=== PATIENT | female | born 1960 | race Caucasian/White ===

== ENCOUNTER 2019-03-29 06:01 | Day surgery (SDC) | payer OTHER, SELFPAY ==
[2019-03-22 10:36] VITALS: BMI 41.8
[2019-03-29] VITALS (19 sets, daily range): BP systolic 113–156; BP diastolic 60–88; PULSE 72–92; RESP 8–18; TEMP 36.3–36.9; O2SAT 92–99; BMI 41.8
--- NOTE | 2019-03-29 | DI.RAD.S_ITS ---
PROCEDURE: XR ANKLE LT MIN 3V INDICATIONS: LEFT ANKLE BONE GRAFTING TECHNIQUE: AP and lateral intraoperative fluoroscopic views of the ankle were acquired. COMPARISON: None. FINDINGS: Intraoperative fluoroscopy documents a distal fibular diaphysis osteotomy/fracture with subsequent internal fixation/fusion of the distal fibula, distal tibia, and distal talus by multiple hardware screws. There is soft tissue edema and irregularity overlying the left ankle, consistent with postsurgical change. Left ankle and hindfoot degenerative changes are again demonstrated. Calcaneal enthesopathy is also noted. IMPRESSION: Intraoperative fluoroscopy documenting a left distal fibular diaphyseal osteotomy/fracture with subsequent internal fixation/fusion of the left distal fibula, distal tibia, and distal talus. Dictated by: Maxi Patel M.D. on 03/29/2019 at 17:41 Approved by: Maxi Patel M.D. on 03/29/2019 at 17:47
--- NOTE | 2019-03-29 06:57 | PM.PREOP ---
Pre-operative Note Interval Note History & Physical reviewed/Exam performed by Physician: Yes Changes to H&P: No
[2019-03-29] MEDS: LACTATED RINGERS 1,000 ML 42 ML IV ×2 (07:00→09:21)
--- NOTE | 2019-03-29 07:37 | P.OP_ITS ---
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 Open ankle fusion, left CPT code 05539 2. Fibular excision distal, left CPT code 67130 3. Bone graft major, proximal tibia, left CPT code 72372 4. Tendo Achilles lengthening left cpt 37163 5. Exostectomy spur talonavicular joint--navicular spur 40380 Modifier 22 for morbid obesity. the patient's elevated BMI 41 required extra help with positioning and assistance for holding for and screw placement., culminating in taking approximately twice as long as the standard ankle fusion. Same procedure as scheduled: Yes Indications: Patient is a 59-year-old female with a history of posttraumatic left ankle arthritis morbid obesity that has failed conservative treatment. She has been indicated for open ankle fusion to address her deformity and posttraumatic arthritis. She has been indicated for titanium implant due to nickel allergy. The patient has maintained cessation from smoking. The risks and benefits of the procedure have been discussed with the patient even opportunity to ask questions. The risks of surgery include but are not limited to infection, malunion, nonunion, persistence of pain, damage to nerves and blood vessels, posttraumatic arthritis, DVT, PE, cardiopulmonary complications and . The patient expressed a thorough understanding of the risks and benefits of surgery and has elected to proceed. Consent was signed in the office. Patient understands the importance of elevation above the heart level for the at least 2 weeks postoperatively to help with pain and swelling. She understands that she'll be nonweightbearing for approximately 3 months. Surgeon: Tamie Schmid Assistant Speech Language Pathologist: Leroy Morris Anesthesia Type: General, Peripheral nerve block and Local Operative Notes Findings: Posttraumatic ankle arthritis valgus, equinus contracture Closure Type: primary Specimen(s): none sent Prosthetic devices, grafts, tissues, transplants, or devices: Arthrex 6.7 titanium partially threaded headed cannulated screws x3. Arthrex solid 4.5 cortical screws x2 Estimated Blood Loss (mL): 100 Blood products transfused: none Tourniquet time (min): 120 Procedure in detail: Patient was seen in the preoperative area and the site of surgery was marked and informed consent confirmed. The patient was brought back to the operating room. The patient received a preoperative block by the anesthesia team for postoperative pain control. The patient was positioned supine on the operative table. General anesthesia was administered. All bony prominences were well padded. An SCD was placed on the contralateral lower extremity. A well-padded thigh tourniquet was placed. An ipsilateral thigh bump was placed. The patient was prepped and draped in the standard sterile fashion. Formal time-out procedure was performed confirming the patient's side and site of surgery and appropriate weight based preoperative antibiotic dosing. Informed consent was in the room. Implants were in the room and accounted for. All were in agreement Attention was turned to the patient's left lower extremity. Surgical incision sites were marked out on the leg and the tourniquet was raised on the thigh 250 mm of mercury and stayed there for 120 minutes and then was released and not real elevated. The patient is a previous lateral fibular incision was reopened. This was taken through the skin subcutaneous tissue down to the level of the fibula. Subperiosteal dissection was taken anteriorly and posteriorly releasing the fibula. The fibula was osteotomized approximately 8 cm proximal this was done with the TP S saw. The distal fibula was then excised and put aside in a moist cloth. This provided access to the tibiotalar joint. The had tremendous tractor was used to provide access to the joint and then the joint was debrided of any remaining cartilage with a series of curettes and osteotomes. Of note the bone was severely eburnated. An additional medial arthrotomy incision was made to help debride the medial gutter as well as provide access to the talonavicular joint which also had a large spur that was debrided at the patient's request. At the medial arthrotomy the anterior tibialis tendon was protected within its sheath and retracted laterally. This exposed the tibiotalar joint and distally the talonavicular joint. The rongeur was and osteotomes were used to debride the dorsal navicular spur. And a series of curettes and osteotomes used to help debride the medial gutter. Once this was completed the wound was irrigated. This was irrigated thoroughly and then a 4 0 oval bur was used to prepare the bony surfaces followed by drilling with the [address]. Next attention was turned to harvesting the bone graft. The fibula was divided in the sagittal plane and the medial part morselized for autograft. The lateral part was retained to use as a fibular strut. To obtain additional autograft the proximal tibia bone graft site was utilized. A 2 cm incision just lateral to the tibial tubercle and distal to Gerdy's tubercle was made. The soft tissues were retracted. The anterior compartment fascia was incised and retracted posteri denise. A 6 mm osteotome was used to make a sq bone window. A large curette was used to harvest the bone graft. X-ray was used to confirm this was well away from the joint line. Once this was completed the bone window was replaced and this wound was closed in a layered fashion after irrigation. And local anesthetic was administered. The autograft was placed into a container and set aside on the back table. Now attention was turned back to the ankle for the arthrodesis procedure. The autograft was placed along the talus and tibia filling the cyst surface with autograft. Following this the ankle was positioned into neutral dorsiflexion and rotation line with the 2nd toe and the tibial crest. This was checked on multiplanar fluoroscopy and then pinned in place using a guidewire for the 6 7 a cannulated screws. The 1st wire was placed through the lateral process of the talus up through the medial tibia. This was then measured and overdrilled. Then a a screw from the tibia to the lateral process of the talus was placed at this was a short thread acute 6 7 cannulated screw. This provided excellent fixation. Next attention was turned to a anterior lateral screw from the fibula into the talus again this was placed with a guidewire confirmed on multiplanar fluoroscopy and then over drilled and a short 6 7 cannulated screw placed. A 3rd screw was attempted for a posterior to anterior screw. This was 1st attempted anterior lateral aiming into the talar neck however S screw traffic was encountered after multiple attempts and this was ultimately abandoned and switched to a additional medial screw which did obtain good purchase. This was fixed with a long thread 6 7 cannulated screw and a washer was utilized to help avoid subsidence. Once the screws were confirmed the remaining lateral aspect of the fibula was used as an on leg graft and secured with 245 cortical screws placed in lag fashion. Once this was completed the prominent edge of the fibula distally was burred and smoothed off the wound was irrigated thoroughly and closed in layers with 0 Vicryl 2 O Vicryl 4 0 Monocryl and 3 O nylon. 0.25% Marcaine with epinephrine was used as local anesthetic. A sterile dressing with Xeroform gauze Webril bulky Clemens cotton and a U and posterior splint were placed. Final fluoroscopic imagings were obtained confirming a neutral alignment and no additional joint penetration. Patient was then woken from anesthesia and taken to recovery room in good condition. There no immediate complications from this procedure. All counts were correct. The patient did receive a re-dose of her antibiotics at the 4 hour angel. Complications: none Post-operative Condition: stable Disposition: Acute Care Plan for aftercare: Patient will be admitted to the hospital postoperatively for monitoring and pain control. She brought her CPAP to use on the floor. She will be discharged when her pain is controlled. Start aspirin 325 mg on postop day 1 for DVT prophylaxis. She'll continue this for 42 days. Maintain nonweightbearing left lower extremity. Elevate above the heart level. Follow up as scheduled in 1 week. Patient has prescriptions for pain medication oxycodone and Toradol and anti nausea medications Zofran and stool softener Colace on the chart.
[2019-03-29] MEDS: MIDAZOLAM 2 MG/2 ML VIAL IV (07:42)
[2019-03-29] MEDS: fentaNYL 100 MCG/2 ML INJ 50 MCG IV ×2 (07:42→07:45)
[2019-03-29] MEDS: CEFAZOLIN 2 GM/100 ML FROZ.PIGGY IV ×3 (08:06→19:52)
--- NOTE | 2019-03-29 08:14 | SUR.PREOP ---
Block start time [0752] . Monitoring initiated and maintained throughout procedure. Oxygen and medications given per anesthesiologist instructions. Patient remained stable throughout procedure, no adverse reactions noted. Block end time [0757 ].
--- NOTE | 2019-03-29 08:39 | SUR.OPER ---
Supine on padded OR bed, head on pillow, arms secured on padded arm boards at <90 degrees abduction, legs uncrossed, safety belt at thigh, tape over blanket over lower legs. bump under left hip, blankets placed under left leg
--- NOTE | 2019-03-29 09:13 | PM.PROC.1 ---
Procedures Date/Time Date of procedure: 03/29/19 Time of procedure: 07:45 Nerve Block Local anesthetic used: other (0.5% Ropivacaine 16ml, 2% Lido with epi 4ml) Location of anesthetic used: Left popliteal Amount of anesthesia used (mL): 20 Nerve blocks: other (Left Sciatic nerve block, popliteal approach) Procedure successful: Yes (Unknown outcome at time of this documentation.) Patient tolerated procedure: well and no complications Complications: none Additional comments: Procedure explained, questions answered and consent signed. Routine monitors and NC O2 in place with patient in prone position. Nerve stimulator and ultrasound utilized. Site and side reaffirmed. IV sedation titrated (total of 2mg Versed and 100mcg fentanyl. Landmarks identified, measured and marked. Chloroprep applied and sterile drapes used. Ultrasound visualization verified. 1% Lidocaine skin wheel with 25g. Nerve block needle (sheathed, 22g, 100mm) advanced. No twitch elicited (after drapes removed realized grounding pad for twitch monitor had detached). Negative 2ml test dose. Total volume of 20 ml given. Patient tolerated procedure well and patient taken to the OR. No evidence of block onset at time of induction for surgery. Of note, no ultrasound picture obtained due to malfunction of ultrasound printer.
[2019-03-29] MEDS: ACETAMINOPHEN IV 1,000 MG/100 ML VIAL 400 MG IV (13:07)
[2019-03-29] MEDS: BUPIVACAINE 0.25% W/ EPI (PF) 10 ML VIAL 30 ML INJ (13:10)
[2019-03-29] MEDS: HYDROMORPHONE 2 MG INJ IV ×4 (14:01→14:41)
[2019-03-29] MEDS: hydrOXYzine 50 MG/ML INJ 25 MG IM (14:03)
[2019-03-29] MEDS: OXYCODONE IR 5 MG TABLET PO (15:26)
--- NOTE | 2019-03-29 15:54 | SUR.PHASEI ---
Patient transferred to the floor on 1l o2. Report to Shannan. VS stable. IV saline locked. Scant amt of sero-sanguineous drainage to upper left leg dressing. KATHLEEN CDI. Left toes pink. Belongings bag and Cpap with patient.
[2019-03-29] MEDS: LACTATED RINGERS 1,000 ML 125 ML IV (16:18)
[2019-03-29] MEDS: HYDROMORPHONE 0.5 MG INJ IV ×2 (16:41→19:52)
[2019-03-29] MEDS: ACETAMINOPHEN 325 MG TABLET 975 MG PO ×2 (16:41→21:37)
--- NOTE | 2019-03-29 16:56 | PM.PNPO.1 ---
Subjective Subjective Date Patient Seen: 03/29/19 Time Patient Seen: 16:57 Interval history: Postop day 0 left ankle fusion, fibular excision, navicular ostectomy, tendo Achilles lengthening Doing well. Pain getting better controlled. On the floor. Block did not seem to work very well. Has some mild numbness around the toes otherwise did not get much relief from the block but is improving with the pain medications. Resting comfortably in bed right now. Using the CPAP when she sleeps. Exam Vital Signs (past 8 hours): - 03/29/19 13:49 03/29/19 13:54 03/29/19 13:59 Temperature 97.3 F L Pulse Rate 91 H 83 85 Respiratory Rate 15 9 L 10 L Blood Pressure 113/70 122/77 131/61 Pulse Oximetry 94 95 95 03/29/19 14:04 03/29/19 14:14 03/29/19 14:24 Temperature Pulse Rate 83 86 83 Respiratory Rate 9 L 14 8 L Blood Pressure 117/73 120/69 115/60 Pulse Oximetry 95 95 92 03/29/19 14:34 03/29/19 14:44 03/29/19 14:54 Temperature 97.8 F Pulse Rate 84 84 87 Respiratory Rate 18 12 12 Blood Pressure 127/70 133/67 123/68 Pulse Oximetry 99 98 96 03/29/19 15:04 03/29/19 15:14 03/29/19 15:29 Temperature Pulse Rate 85 79 92 H Respiratory Rate 12 12 12 Blood Pressure 125/74 122/70 124/77 Pulse Oximetry 97 93 95 03/29/19 15:35 03/29/19 16:05 03/29/19 16:36 Temperature 98.0 F 97.4 F L 98.5 F Pulse Rate 82 81 91 H Respiratory Rate 16 16 16 Blood Pressure 127/68 137/67 156/83 H Pulse Oximetry 96 93 93 Oxygen Delivery Method Room Air Oxygen Flow Rate 1 Narrative Exam Narrative: Resting in bed. Alert and oriented. Breathing unlabored room air. Has CPAP available for when she sleeps for her obstructive sleep apnea Regular rate and rhythm Left lower extremity in splint clean dry and intact. Can feel some sensation in her toes that is tingly. Partial nerve block Assessment & Plan Post-op Postoperative Procedures: Procedures Operation Date: 03/29/19 07:45 Actual Procedures Side Surgeon p Ankle Fusion, poss. autologous bone graft Left Tamie Schmid MD postop day 0 left ankle fusion. Patient had fibular excision, proximal tibia on the longus bone graft, tendo Achilles lengthening, navicular exostectomy Nonweightbearing left lower extremity. Admission for pain control. Patient will work with Physical therapy tomorrow. If pain controlled possible discharge home other ways anticipate may be discharged home on Monday when pain is controlled. Patient will have narcotic available as well as scheduled Toradol. On the patient's chart there are some discharge prescriptions including oxycodone and 3 days of oral Toradol, Zofran, Colace. Patient will start aspirin 325 mg daily for DVT prophylaxis on postop day 1. She will also use SCDs while in bed in the hospital. The patient will follow up in [address] Schmid. She has been counseled the importance of elevation above the heart level as much as possible for the 1st 2-3 weeks after surgery Quality VTE Deep Vein Thrombosis/Pulmonary Embolism Present on Admission: No
[2019-03-29] MEDS: OXYCODONE IR 10 MG TABLET PO ×2 (18:57→21:45)
[2019-03-29] MEDS: DOCUSATE 100 MG CAPSULE PO (21:36)
[2019-03-29] MEDS: KETOROLAC 30 MG/ML VIAL IV (21:37)
--- NOTE | 2019-03-29 23:47 | PC.NURSE ---
Admit/Evening Shift Note-Patient arrived to room via bed from PACU. Patient alert and oriented and able to make needs known to staff. Patient oriented to bed and bed controls, room, lights, phone, menu, and call slaughter/tv remote. PRN Pain medications given as ordered per patient request. Patient tolerated without issue. LLE in cast ans wrap with graeme wrap and elevated up on pillows. Ice pack provided. serosanguinous drainage noted to back of cast, simulation technician surgeon notified. No new ordered given. Will monitor. Safety measures in place. patient agrees to call for assistance. bed alarm activated. call slaughter and phone within reach. Will continue to monitor.
[2019-03-30] MEDS: OXYCODONE IR 10 MG TABLET PO ×5 (00:45→12:17)
[2019-03-30] MEDS: LACTATED RINGERS 1,000 ML 125 ML IV (00:46)
[2019-03-30] MEDS: HYDROMORPHONE 0.5 MG INJ IV (02:12)
[2019-03-30 03:43] VITALS: BP 123/78; PULSE 71; RESP 16; TEMP 36.6; O2SAT 96
[2019-03-30] MEDS: CEFAZOLIN 2 GM/100 ML FROZ.PIGGY IV (04:25)
[2019-03-30] MEDS: KETOROLAC 30 MG/ML VIAL IV ×2 (05:31→12:59)
[2019-03-30] MEDS: VARENICLINE 1 MG 1 EACH PO (08:38)
[2019-03-30] MEDS: DOCUSATE 100 MG CAPSULE PO (08:38)
[2019-03-30] MEDS: AMLODIPINE 2.5 MG TABLET PO (08:38)
[2019-03-30] MEDS: LOSARTAN 50 MG TABLET 100 MG PO (08:39)
[2019-03-30] MEDS: hydroCHLOROthiazide 25 MG TABLET PO (08:39)
[2019-03-30] MEDS: ASPIRIN EC 325 MG TABLET PO (08:39)
[2019-03-30] MEDS: ACETAMINOPHEN 325 MG TABLET 975 MG PO ×2 (08:39→14:01)
[2019-03-30] MEDS: SODIUM CHLORIDE 0.9% FLUSH 10 ML IV (08:40)
[2019-03-30 09:15] VITALS: BP 132/68; PULSE 85; RESP 16; TEMP 36.6; O2SAT 96
--- NOTE | 2019-03-30 09:22 | P.DS_ITS ---
History of Present Illness History of Present Illness Date Patient Seen: 03/30/19 Time Patient Seen: 09:22 Chief complaint: *OPB* [id number] Narrative: Postop day 1 left ankle fusion Doing well. Pain better controlled today. Block is worn off. Has not worked with physical therapy. Denies fevers chills shortness of breath. Would like to try to go home today if she is successful with therapy. Discharge Providers Provider Discharge Date: 03/30/19 Primary care physician: BASSEM Gongora Consults: 03/29/19 06:00 Consult to Anesthesiology Routine Comment: Consulting Provider: Anesthesiologist Reason for consultation: Post operative pain managment Has provider been notified: No 03/29/19 06:58 Consult to Respiratory Therapy Evaluate & Treat Comment: Physician Instructions: Evaluate and treat 03/29/19 16:03 Consult to Physical Therapy Evaluate & Treat Comment: KEILY LAL Physician Instructions: Evaluate and Treat Consult to Respiratory Therapy Evaluate & Treat Comment: Physician Instructions: Evaluate and treat 03/29/19 16:06 Consult to Respiratory Therapy Evaluate & Treat Comment: ALTON w/ CPAP, mild asthma, obesity, past smoker Physician Instructions: Evaluate and treat Discharge provider: Tamie Schmid MD Summary Hospital Course Discharge Diagnosis: Left ankle posttraumatic arthritis Morbid obesity BMI 41.8 Obstructive sleep apnea Hospital Course: Patient was admitted to the hospital postoperatively after her ankle fusion. Patient was admitted for monitoring and pain control. Patient has history of obstructive sleep apnea and requires CPAP. Patient's peripheral nerve block was only partially affected. Patient received IV and oral pain medications. On postoperative day 1 the patient felt that her pain was adequately controlled. She will be working with Physical therapy later today. If she has safe for ambulation and stable to remain nonweightbearing on the lower extremity with pain controlled she may be discharged to home versus requiring another day stay for pain control and mobilization assistance.. Status at Discharge Cognitive/behavioral status at discharge: oriented Functional status at discharge: uses cane/walker Overall status at discharge: patient is not back to baseline Time Spent with Patient Time spent: Less than 30 minutes Exam Vital Signs (past 8 hours): - 03/30/19 03:43 Temperature 97.9 F Pulse Rate 71 Respiratory Rate 16 Blood Pressure 123/78 Pulse Oximetry 96 Oxygen Delivery Method Room Air,CPAP Oxygen Flow Rate 0 Narrative Exam Narrative: General exam is alert oriented obese female lying in bed. Good spirits this morning HEENT exam normocephalic atraumatic Respiratory exam unlabored on room air Vital signs stable CV exam regular rate and rhythm. Lower extremities: Left lower extremity in splint. Splint is some mild amount of drainage on the posterior lateral aspect of the Alex. And small amount of drainage at the proximal bone graft harvest site. Patient wiggles toes. Endorses sensation. Brisk capillary refill. Right lower extremity normal range of motion. Soft and nontender. Normal sensation. SCD on contralateral ext remity Discharge Plan Discharge Plan Patient Disposition: Home Discharge comment: if successful after working with physical therapy today Discharge Med Rec/Prescriptions Prescriptions: New ketorolac 10 mg tablet 10 mg PO QID 3 Days Qty: 12 RF: 0 oxycodone 5 mg tablet 5 - 10 mg PO Q4H PRN (Reason: pain) Qty: 60 RF: 0 aspirin 325 mg tablet,delayed release (DR/EC) 325 mg PO DAILY Qty: 42 RF: 0 docusate sodium [Colace] 100 mg capsule 100 mg PO BID Qty: 30 RF: 1 ondansetron HCl [Zofran] 4 mg tablet 4 mg PO Q8H PRN (Reason: nausea and vomiting) Qty: 7 RF: 1 Continued hydrochlorothiazide 25 mg Tablet 25 mg PO DAILY RF: 0 albuterol sulfate [Ventolin HFA] 90 mcg/actuation Hfa Aerosol Inhaler 1 - 2 puff INHALATION Q4-6H PRN (Reason: Shortness Of Breath) RF: 0 losartan 100 mg Tablet 100 mg PO DAILY RF: 0 fluticasone propionate 50 mcg/actuation [place],Suspension 2 spray INTRANASAL DAILY RF: 0 Chantix 1 mg Tablet 1 mg PO BID RF: 0 amlodipine 2.5 mg Tablet 2.5 mg PO DAILY RF: 0 Follow up/Referrals: Tamie Schmid MD [Physician] - Discharge Orders: Discharge (Order); Ordered 03/30/19 Ordered By: Tamie Schmid Provider Discharge Instructions Diet: Diet as Tolerated Activity: nwb LLE. elevate above heart level as much as possible Other treatments: At-Home Instructions - Dr. Schmid Surgery: ankle fusion Cast/Splint/Dressing Care Instructions 1) Keep cast/dressing clean and dry. 2) May bathe - but cast/dressing must remain dry. 3) Should the cast become wet, you need to come into emergency department or call your physician's clinic immediately for cast removal and replacement. Moisture can cause skin breakdown and lead to infection if left untreated. 4) Do not stick any sharp object down the cast to itch, as this can cause scrapes/cuts/punctures which can lead to infection. 6) Observe for increasing pain in the extremity with the cast, finger/toe-tips turning blue/purple, or numbness and tingling in your toes/fingers. Should any of these symptoms arise, you need to be seen immediately for evaluation of swelling and increasing compartment pressures within your affected extremity. 7) Keep your affected extremity elevated - Toes Above your Nose? - This is plummer in the first two weeks after surgery to minimize swelling. 8) You may ice your extremity, being careful to prevent melting ice from saturating into the splint/cast. Activity No heavy lifting greater than 10 pounds. No [address] while on narcotic pain medication. Do not get your dressing/cast/splint wet! You must remain non-weight bearing on your operative extremity. Use crutches or a walker for ambulation. No driving until you are otherwise instructed by your physician. This will be addressed at your first follow-up appointment. Discharge Pain Medications You will be given a prescription for pain medication. You should start taking this the same day after your surgery. Wean off as tolerated. Do not wait to take the pain medication until the pain is severe, as it will be difficult to catch up once this occurs. The pain medication usually reaches its full effect ~1 hour after ingesting. If you have been sent home on Colace, this medication should be taken until you are off all narcotic (i.e. Vicodin, Percocet, Oxycodone, etc) pain medications, to prevent constipation. You may also obtain this or another stool softener over the counter to prevent or alleviate constipation. Percocet or Vicodin have Tylenol in their ingredient lists. You must be careful not to exceed 3,000mg (3 grams) of Tylenol, from all sources, within a single 24-hr period. This means that you may not take more than 10 pills within a 24- hr period. Do NOT take Regular or Extra Strength Tylenol when taking your Percocet or Vicodin medications. -Recommend vitamin D and calcium to help bone healing: recommend 500 units vitamin D daily and 1200mg calcium daily -Some common side effects of the narcotic pain medications (Percocet, Oxycodone, Vicodin, etc.) include nausea and itching. Benadryl is a great over the counter medication that helps calm your stomach, decreases your anxiety levels, and minimizes the itching. You can easily purchase this at your local pharmacy as an pzhp-joo-shotyyy medication. Please abide by the instructions as printed on the bottle. If your nausea persists, make sure to take small amounts of crackers or other drywall taper helper foods. Follow-Up/Emergency Contacts Please call for an appointment in either [place] or [place], if one has not been scheduled. Follow up 1 week after surgery. [phone] Contact the office if you have any of the following: ? Painful swelling or numbness ? Unrelenting pain ? Fever (over 101?- it is normal to have a low grade fever for the first day or two following surgery) or chills ? Redness around the incisions ? Color changes ? Continuous bleeding or drainage from the incision (a small amount is expected) ? Excessive nausea or vomiting ? Difficulty breathing If you have an emergency that requires immediate attention, proceed to the nearest emergency room. Blood Clot Prophylaxis You will need to complete a total 6-week (42 days) course of Aspirin (325 mg daily) after surgery, to minimize the risk of blood clots following surgery. You may alternatively purchase or use [id number] generic equivalent Aspirin. If you already have ?baby? Aspirin (81mg) at home, you can take 4 ?baby? Aspirin to total 324mg for the equivalent dose. Pain Medications: It is the policy of [facility] that narcotic medications will only be refilled during office hours. Additionally, due to the alarming rate of narcotic pain medication abuse/dependence, it has become necessary for physician practices to closely manage patient use of prescription narcotic pain relievers, such as Vicodin ([place]), Percocet, and Oxycodone products. Narcotic pain management in the postoperative period may not exceed 6 weeks. If narcotic pain management is required beyond 90 days, then a referral to a Chronic Pain Specialist will be made. If a request for a medication prescription has been made, the physician must review your chart prior to authorizing the request. Please be patient with office staff. If you call during patient hours, your call may not be returned until the end of the day. A visit will be required before a narcotic prescription can be issued. Dr. Tamie Schmid [address] [email or web address] Skin/Wound/Dressing Care Report to your healthcare provider any signs of infection, such as:: chills, fever, night sweats, increased pain, unusual drainage and unusual redness Dressing: keep clean, dry and intact Discharge Data Primary Care Provider: Jaja Baker Attending Provider: Tamie Schmid Quality VTE Deep Vein Thrombosis/Pulmonary Embolism Present on Admission: No
--- NOTE | 2019-03-30 09:32 | PT.IIE ---
Current Diagnoses Primary osteoarthritis, left ankle and foot (03/29/19) Post-traumatic osteoarthritis, left ankle and foot (03/29/19) Surgery Performed Operation Date: 03/29/19 07:45 Actual Procedures p Ankle Fusion, poss. autologous bone graft(Left) - Tamie Schmid MD Surgical History (Last Updated 03/22/19 @ 10:41 by Lashon Sharma RN) H/O wrist surgery (Acute ~2018) H/O: hysterectomy (Acute 11/23/15) History of ankle surgery (Acute) Hx of cholecystectomy (Acute ~2001) Medical History (Last Updated 03/22/19 @ 10:41 by Lashon Sharma RN) Chronic pain of left ankle (Acute) Uterine cancer (Acute) Physical Therapy Inpatient Evaluation/Re-Eval M1 PT/OT-IP Prior Functional Status Start: 03/30/19 12:58 Freq: NEEDED Status: Active Protocol: Document 03/30/19 09:32 AB (Rec: 03/30/19 13:25 AB [id number]) Medical Review Prior Functional Status Medical History Reviewed Yes Communication Able to make needs known Mobility and Gait pt stated that she is independent with all mobilities and ambulation without AD Social History Household Members spouse Living Arrangements House Number of Floors (Floors) One Floor Number of Stairs To Enter/Railing? 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 Additional Social History Comment pt stated that she works at [employer] pt also has a knee scooter M2 PT-IP Current Condition Start: 03/30/19 12:58 Freq: NEEDED Status: Active Protocol: Document 03/30/19 09:32 AB (Rec: 03/30/19 13:25 AB [id number]) Physical Therapy Current Condition Current Condition Evaluation Date 03/30/19 Treatment Diagnosis s/p L ankle fusion; difficulty in walking Onset Date 03/29/19 Precautions Brace pt has soft cast on LLE Weight Bearing Status Weight Bearing Status Non-Weight Bearing Allowed Weight Bearing Amount (enter % LLE: NWB or #) (%) M3 PT-IP Subjective Start: 03/30/19 12:58 Freq: NEEDED Status: Active Protocol: Document 03/30/19 09:32 AB (Rec: 03/30/19 13:25 AB [id number]) Subjective Physical Therapy Visit Type Type Initial Evaluation Visit Start Time 09:32 Visit Stop Time 10:29 Total Visit Minutes 57 Number of RIFLE CASE REPAIRER Visits 0 Physical Therapy Visit Comments Patient Comments pt agreeable to do PT Patient Goals to go home Therapy Pain Assessment Pain When Pain Assessed At Rest Pain Present Pain Present Pain Reported Location left ankle Intensity 6 Scale Used Numeric (1 - 10) Pain Management Techniques Apply Cold,Modification of Treatment,Re-positioning, Timing of Activity with Medications M4 PT-IP Mobility and Gait Start: 03/30/19 12:58 Freq: NEEDED Status: Active Protocol: Document 03/30/19 09:32 AB (Rec: 03/30/19 13:25 AB [id number]) PT-Bed Mobility Assessment Supine to Sit Supine to Sit Standby Assistance PT-Transfer Assessment Sit to and From Stand Sit to and from Stand Contact Guard Assistance, Minimal Assistance,1 Person Assistance,Use of Upper Extremities Equipment Transfer Assistive Device Gait Belt,Front Wheeled Walker Orthotic/Prosthetic Devices or Brace: Yes Transfers Transfer Destination Chair Transfer Technique ambulated using FWW Transfer Ability Level of Assist Minimal Assistance,1 Person Assistance,Use of Upper Extremities Comments Mobility Comments BP sitting on EOB: 167/75. completed sit to stand min A and cues. ambulated in room ~ 15 ft requiring min A and cues. c/o lightheadedness. BP sitting on chair after ambulation: 159/75. Assessed use of crutches: completed sit to stand min A and cues. ambulation with crutches min to mod A and cues . pt agreed to sit up on chair. positioned pt on chair . ice pack provided. call light and table placed within reach. during ambulation, pt has difficulty elevating RLE for forward stepping and informed pt regarding stair management and that pt is not safe to climb up stairs as pt is not clearing LE up high enough to get up to a step with use a FWW and will be more difficulty when using crutches . Pt agreed and stated that she will not be able to do the stairs. Spouse stated that he will bring pt into the house on a w/c. spouse stated that he took care of his dad that was a quadriplegic and knows how to maneuver and get pt into the house on the stairs. spouse also stated that he will also have 2-3 more people in to assist him. Gait Assessment Gait Gait Assistance Required: Minimum Assistance Distance (Feet) 15 Able to Maintain Weight Bearing Status Yes During Gait Assistive Devices Assistive Device Gait Belt,Front Wheeled Walker ,Axillary Crutches Orthotic/Prosthetic Devices or Brace: Yes Gait Deviations General Gait Pattern Antalgic,Decreased Stride Length,Decreased Feet Clearance Factors Limiting Gait Function Factors Limiting Gait Function Decreased Activity Tolerance, Decreased Strength,Limited Range of Motion,Pain,Poor Balance,Poor Safety Awareness Comments Gait Comments ambulated using FWW min A 15ft . ambulated using bilateral crutches min to mod A 10 ft . PT-Balance Assessment Sitting Balance and Reactions Static Sitting Balance Ability Good Dynamic Sitting Balance Ability Good Standing Balance and Reactions Static Standing Balance Ability Fair Dynamic Standing Balance Ability Fair Device Used FWW M5 PT-IP Objective Assessments Start: 03/30/19 12:58 Freq: NEEDED Status: Active Protocol: Document 03/30/19 09:32 AB (Rec: 03/30/19 13:25 [id number]) Orientation Orientation/Cognition Level of Alertness Alert Orientation Name,Age,Birthday,Month,Date, Year,Day of Week,Place, Situation Safety Awareness Understands Safety Issues Memory Description Short Term Impaired Gross Range of Motion Lower Extremity ROM Assessment Left Impaired Impairments L ankle on soft cast and ROM not tested Strength Comments Strength Comments L ankle on soft case and MMT not tested Coordination Assessment Gross Coordination Gross Coordination WNL Muscle Tone Muscle Tone WNL Yes M6 PT-IP Treatment Start: 03/30/19 12:58 Freq: NEEDED Status: Active Protocol: Document 03/30/19 09:32 AB (Rec: 03/30/19 13:25 AB [id number]) Physical Therapy Treatment Education Education Provided Weight Bearing Status,Safety M7 PT-IP Assessment and Plan Start: 03/30/19 12:58 Freq: NEEDED Status: Active Protocol: Document 03/30/19 09:32 AB (Rec: 03/30/19 13:25 AB [id number]) PT Summary Assessment and Plan Potential Rehabilitation Potential Good Status of Condition at Evaluation Stable Summary Impairments Pain,ROM,Strength,Balance, Coordination,Sensation,Bed Mobility,Transfers,Gait, Activity Tolerance Assessment Summary pt requires min A with ambulation using FWW and was not able to tolerate much activity due to c/o lightheadedness but with stable BP. Pt plans to go home today and spouse will be able to assist pt. spouse plans to use a w/c to get pt into the house and will have other people to assist him with this. also informed pt and spouse regarding using a w /c for long distance mobility and both understood and agreed . pt also will need a FWW since pt is not steady/safe with use of crutches. informed transplant case manager and order processed. will dispense FWW upon d/c. Goals Bed Mobility Goal Independent Transfer Goal Standby Assistance,Front Wheeled Walker Gait Goal Standby Assistance,Front Wheel Walker Gait Distance 50 Days to Meet Goals 5 Frequency of Treatment Frequency Of Treatment Twice a Day Treatment Plan Physical Therapy Treatment Plan Bed Mobility Training,Transfer Training,Gait Training, Therapeutic Exercise,Balance Retraining,Post Op Education, Discharge Planning,Hot or Cold Pack,Neuromuscular Re-ed, Coordination Retraining,Manual Therapy Recommendations To Nursing Amount of Assist Needed 1 Person Assist Discharge Recommendations PT Discharge Recommendations Home with 24/10 Assist Equipment Needed for Home Before FWW Discharge
--- NOTE | 2019-03-30 10:55 | CM.DANOTE ---
DCP/Assessment: Reviewed chart. Patient is a 59yr old female admitted to [facility] for left ankle fusion. PCP is BASSEM Gongora. Primary payor is 1Claudio Luiza. Met with patient and spouse/Vince at bedside. Patient reports that she hopes to d/c home today. Therapy finishing assessment when OWNER OPERATOR TANKER TRUCK DRIVER arrived. PT/Tatum requesting order for FWW for home use. Order obtained. Patient and spouse do not anticipate any additional needs. Patient I prior to admit. Notified patient/spouse that CM team would continue to follow if needs were to arise. P: Anticipate home today. Order placed for FWW for home use. D/C order placed. ANNIE Sosa Discharge Planning/Care Management CM Discharge Assessment Start: 03/30/19 10:52 Freq: Status: Active Protocol: Document 03/30/19 10:52 KJS (Rec: 03/30/19 10:55 KJS [id number]) Discharge Planning Assessment Assigned Senior Project Engineer ANNIE Sosa Contact Information Vince Stone (spouse) Advance Directives? No History Provided By Patient,Significant Other, Medical Record Prior Living Arrangements House Household Members spouse Type of transporation used prior to Drives own vehicle admit Independent with ADL's Yes Is patient alert and oriented? Yes Caregiver for Another No Comment Uses CPAP at home for sleep apnea. Barriers to Discharge No Comment Patient hopes to discharge home today after she works with therapy. Discharge Plan Home Transportation Arrangement Family to provide transport Whiteboard Updated in Patient Room with Yes name and ext. # of Senior Project Engineer Review Status In Process Next Review Type Continued Stay Review Pre-Anesthesia Assessment Start: 03/22/19 10:36 Freq: Status: Complete Protocol: Document 03/22/19 10:36 CAB (Rec: 03/22/19 10:48 CAB [id number]) Pre-Anesthesia Assessment Patient Information Reviewed Via Chart Review Diagnostic Results BMP/CMP,CBC,EKG Comment Outside labs/EKG scanned to record Primary Care Provider Jaja Baker Medical Clearance Received Yes Seen Specialist in Last 12 Months Yes Specialist Seen Orthopedist Comment PCP pre-op clearance scanned to record Primary Language Bah[employer]ian [employer] Utility Worker Required No Height 172.72 cm Weight 124.738 kg Body Mass Index (BMI) 41.8 Barriers to Learning None Other Aids No Anesthesia Review Requested No Dredge Captain No Alcohol Intake Frequency Other: Denies Smoking Status Former smoker Smoking packs per day 0.5 how long ago did patient quit smoking Quit 02/01/19, slipped a few times Substance Use Type does not use Pain Present Pain Reported History of Falling (Recent or History of No ) Patient is completely paralyzed or No completely immobile Mental Status Oriented to own ability Is patient on oxygen? No Does patient have HUNT/SOB No Hx Sleep Apnea No Currently Taking a Beta Ken No Hx Chest Pain No Hx SOB No Hx Syncope or Dizziness No Anti-Coagulant Therapy No Has a Movie Actor No Cardiac Testing No Hx Pacemaker/ICD No Pacemaker Rep Required? No Cardiac Clearance Received Not Applicable dysphagia No Urinary Catheter Present No Hx Urinary Self Catheterization No Diabetes Yes Patient No Lactating No Patient Discharge Plan Description Return Home
[2019-03-30 11:15] VITALS: BP 110/65; PULSE 74; RESP 16; TEMP 36.9; O2SAT 95
--- NOTE | 2019-03-30 14:21 | PT.IPTN ---
Current Diagnoses Primary osteoarthritis, left ankle and foot (03/29/19) Post-traumatic osteoarthritis, left ankle and foot (03/29/19) Surgery Performed Operation Date: 03/29/19 07:45 Actual Procedures p Ankle Fusion, poss. autologous bone graft(Left) - Tamie Schmid MD Physical Therapy Treatment Note M2 PT-IP Current Condition Start: 03/30/19 12:58 Freq: NEEDED Status: Active Protocol: Document 03/30/19 09:32 AB (Rec: 03/30/19 13:25 AB [id number]) Physical Therapy Current Condition Current Condition Evaluation Date 03/30/19 Treatment Diagnosis s/p L ankle fusion; difficulty in walking Onset Date 03/29/19 Precautions Brace pt has soft cast on LLE Weight Bearing Status Weight Bearing Status Non-Weight Bearing Allowed Weight Bearing Amount (enter % LLE: NWB or #) (%) M3 PT-IP Subjective Start: 03/30/19 12:58 Freq: NEEDED Status: Active Protocol: Document 03/30/19 13:42 DWAIN (Rec: 03/30/19 14:21 LJ [email or web address]) Subjective Physical Therapy Visit Type Type Treatment Note Visit Start Time 13:42 Visit Stop Time 14:12 Total Visit Minutes 30 Number of PANTOGRAPH TRANSFERRER Visits 1 Physical Therapy Visit Comments Patient Comments pt agreeable to do PT Patient Goals to go home Therapy Pain Assessment Pain When Pain Assessed At Rest Pain Present Pain Present Pain Reported M4 PT-IP Mobility and Gait Start: 03/30/19 12:58 Freq: NEEDED Status: Active Protocol: Document 03/30/19 13:42 DWAIN (Rec: 03/30/19 14:21 LJ [email or web address]) PT-Bed Mobility Assessment Supine to Sit Supine to Sit Standby Assistance PT-Transfer Assessment Sit to and From Stand Sit to and from Stand Standby Assistance,Contact Guard Assistance,Use of Upper Extremities Equipment Transfer Assistive Device Gait Belt,Front Wheeled Walker Orthotic/Prosthetic Devices or Brace: Yes Transfers Transfer Destination Chair Transfer Technique Stand Pivot Transfer Ability Level of Assist Contact Guard Assistance,1 Person Assistance,Use of Upper Extremities Comments Mobility Comments Pt in bed able to perform bed mobility with several cues for using UEs to assist in standing and pushing off bed. Able to pivot on RLE to shuffle to chair. Gait Assessment Gait Gait Assistance Required: Standby Assistance,Contact Guard Assist,1 Person Assist Distance (Feet) 10 Able to Maintain Weight Bearing Status Yes During Gait Assistive Devices Assistive Device Gait Belt,Front Wheeled Walker Orthotic/Prosthetic Devices or Brace: Yes Gait Deviations General Gait Pattern Antalgic,Decreased Stride Length,Decreased Feet Clearance Factors Limiting Gait Function Factors Limiting Gait Function Decreased Activity Tolerance, Decreased Strength,Limited Range of Motion,Pain,Poor Balance,Poor Safety Awareness Comments Gait Comments ambulated with FWW ~10'. Issued FWW and pt trialed sit< >stand pivoting on RLE. M5 PT-IP Objective Assessments Start: 03/30/19 12:58 Freq: NEEDED Status: Active Protocol: Document 03/30/19 09:32 AB (Rec: 03/30/19 13:25 AB [id number]) Orientation Orientation/Cognition Level of Alertness Alert Orientation Name,Age,Birthday,Month,Date, Year,Day of Week,Place, Situation Safety Awareness Understands Safety Issues Memory Description Short Term Impaired Gross Range of Motion Lower Extremity ROM Assessment Left Impaired Impairments L ankle on soft cast and ROM not tested Strength Comments Strength Comments L ankle on soft case and MMT not tested Coordination Assessment Gross Coordination Gross Coordination WNL Muscle Tone Muscle Tone WNL Yes M6 PT-IP Treatment Start: 03/30/19 12:58 Freq: NEEDED Status: Active Protocol: Document 03/30/19 13:42 DWAIN (Rec: 03/30/19 14:21 LJ [email or web address]) Physical Therapy Treatment Education Education Provided Weight Bearing Status,Safety M7 PT-IP Assessment and Plan Start: 03/30/19 12:58 Freq: NEEDED Status: Active Protocol: Document 03/30/19 13:42 DWAIN (Rec: 03/30/19 14:21 LJ [email or web address]) PT Summary Assessment and Plan Potential Rehabilitation Potential Good Status of Condition at Evaluation Stable Summary Impairments Pain,ROM,Strength,Balance, Coordination,Sensation,Bed Mobility,Transfers,Gait, Activity Tolerance Assessment Summary pt requires CGA-SBA with ambulation using FWW. Spouse found a wheelchair that they will cook pickled meat on the way to their house. FWW issued and adjusted for pt. Pt is ready to review D/C orders with nursing. Goals Bed Mobility Goal Independent Transfer Goal Standby Assistance,Front Wheeled Walker Gait Goal Standby Assistance,Front Wheel Walker Gait Distance 50 Days to Meet Goals 5 Frequency of Treatment Frequency Of Treatment Twice a Day Treatment Plan Physical Therapy Treatment Plan Bed Mobility Training,Transfer Training,Gait Training, Therapeutic Exercise,Balance Retraining,Post Op Education, Discharge Planning,Hot or Cold Pack,Neuromuscular Re-ed, Coordination Retraining,Manual Therapy Recommendations To Nursing Amount of Assist Needed 1 Person Assist Discharge Recommendations PT Discharge Recommendations Home with 24/10 Assist
--- NOTE | 2019-03-30 14:33 | PC.NURSE ---
Day shift: Pt left unit at approx 1430. Taken to car driven by Pt's spouse by this journalists and other writers in . [employer] signed and all questions answered. Pt had MD scrips filled already. Pt has all personal belongings. Leg dressing/wrap applied per MD.
== END 2019-03-30 14:36 | disposition home or self-care (01) ==
LOC: OR 07:08 → AC 16:00
PROVIDERS: Family Provider Nurse Practitioner Family; PCP Nurse Practitioner Family; Visit Provider Orthopaedic Surgery Foot and Ankle Surgery
PROC: (CPT 27870; principal; 2019-03-29 07:45)
DX: M19.172 Post-traumatic osteoarthritis, left ankle and foot (principal); M21.072 Valgus deformity, not elsewhere classified, left ankle; M25.775 Osteophyte, left foot; M24.572 Contracture, left ankle; E66.01 Morbid (severe) obesity due to excess calories; Z68.41 Body mass index [BMI] 40.0-44.9, adult; G47.33 Obstructive sleep apnea (adult) (pediatric); I10 Essential (primary) hypertension; Z87.891 Personal history of nicotine dependence
CPT/HCPCS: 27870; 20902; 28120; 64450; 73610; 76000; 94762; 97116; 97161; 97530; J0131; J0690; J1100; J1170; J1885; J2250; J2405; J2704; J3010; J3410